=== PATIENT | male | born 1975 | race Asian ===

== ENCOUNTER 2019-11-06 12:52 | Inpatient (IN) | payer OTHER ==
[~2019-11-06] VITALS: Ht 172.7 cm; Wt 68.0 kg
[~2019-11-06 12:52] MED LIST: AMLODIPINE BES1 CAP PO; AMLODIPINE BESY10 M2 PO; BENADRYL ALLERG25 M1 PO; CARBAMAZEPINE200 M3 PO; CLONAZEPAM1 M2 PO; HALOPERIDOL2 MG/ML PO; IRON65 MG PO; LOXAPINE10 MG PO; NATURE'S BLEND F1 MG PO; QUETIAPINE FUM400 M1 PO; TENORMIN25 MG PO; VITAMIN B122500 MC1 PO
[2019-11-06 12:55] VITALS: Ht 172.7 cm; Wt 68.0 kg
--- NOTE | 2019-11-06 12:55 | NUR ---
PT WAS BIBA FROM HOME FOR C/O WORSENING WEAKNESS AND ALOC; PER EMS PT HAS PSYCH HX, WAS ADMITTED TO PSYCH FACILITY [facility] IN [place] SINCE THEN PT HAS HAD PROGRESSIVE WEAKNESS, NOT SPEAKING, NOT EATING AND URINARY INCONTINENCE PER EMS AND PAPERWORK BY FAMILY, PT TAKES HALDOL PER EMS; PT IS AWAKE, WAS ABLE TO STATE HIS NAME AND , WHEN ASKED BY DR. MONTALVO PT NOT ANSWERING QUESTIONS, PT IS IN NO ACUTE DISTRESS, VSS
[2019-11-06 13:37] LABS: BASOPHIL % 0.3 % (0-2); PLATELET COUNT 254 x10^3mcL (130-400); RED CELL DISTRIBUTION WIDTH 13.8 % (11.5-14.5)
[2019-11-06 14:08] LABS: ALBUMIN 3.7 g/dL (3.4-5.0); ALKALINE PHOSPHATASE 62 U/L (46-116); ALT/SGPT 24 U/L (16-63); AST/SGOT 8 U/L (15-37); BILIRUBIN TOTAL 0.25 mg/dL (0.20-1.00); CALCIUM 8.9 mg/dL (8.5-10.1); CARBON DIOXIDE 23.4 mmol/L (21-32); CHLORIDE SERUM 106 mmol/L (98-107); CHOLESTEROL 198 mg/dL (<200); GFR1 16 mL/min; GLUCOSE SERUM 97 mg/dL (74-106); POTASSIUM SERUM 3.8 mmol/L (3.5-5.1); SODIUM SERUM 142 mmol/L (136-145); TOTAL PROTEIN, SERUM 7.1 g/dL (6.4-8.2)
--- NOTE | 2019-11-06 14:15 | NUR ---
PT LAYING QUIETLY, SAID HIS NAME & NODDED YES & NO TO SIMPLE QUESTIONS BUT WOULDN'T ANSWER SOME QUESTIONS VERBALLY. WHEN ASKED WHERE HE WAS REPLIED "[facility]" & WHEN ASKED THE DATE STATED "DECEMEBER." FLUID BOLUS RUNNING.
--- NOTE | 2019-11-06 14:15 | NUR ---
PT LAYING QUIETLY, SAID HIS NAME & NODDED YES & NO TO SIMPLE QUESTIONS BUT WOULDN'T ANSWER VERBALLY. WHEN ASKED WHERE HE WAS REPLIED "[facility]" & WHEN ASKED THE DATE STATED "MARCH." FIELD IV WAS RUNNING, CLAMPED OFF D/T NO FLUID ORDER.
[2019-11-06 14:21] LABS: CREATININE SERUM 4.3 mg/dL (0.7-1.3)
--- NOTE | 2019-11-06 15:15 | NUR ---
DR MONTALVO SPOKE W/ MOTHER & FATHER. PER PARENTS, PT HAS 30 YEAR HX OF BIPOLAR & SCHIZOPHRENIA & WAS WELL-CONTROLLED ON LITHIUM. 2 YEARS AGO HE WAS TAKEN OFF D/T RENAL ISSUES. PT HAS HAD RECENT ADMISSIONS @ [facility]. DESCRIBE PT BEING BEDRIDDEN X 2 WEEKS W/ DECREASED PO INTAKE & URINARY INCONTINENCE. THEY SENT HIM IN TODAY D/T WORRIES ABOUT HIS KIDNEYS.
--- NOTE | 2019-11-06 15:25 | NUR ---
PT WAS UNABLE TO VOID PER URINAL. WENT TO CATH PT. PT FOUND TO BE INCONTINENT OF URINE. LINENS CHANGED. ST CATH PT FOR 1100 PALE CLEAR URINE. CHUX & DIAPER APPLIED. PT COOPERATIVE. "PT CNA PCT" FROM AMBULANCE REMOVED FROM OUT FROM UNDER PT & PT PULLED UP IN BED.
--- NOTE | 2019-11-06 15:43 | NUR ---
MED IM PER ORDER.
--- NOTE | 2019-11-06 16:50 | NUR ---
PT LAYING COMFORTABLY IN RIGHT LATERAL POSITION. CONTINUES TO ANSWER HE IS AT "[facility]" AND IN THE MONTH OF "MARCH. PT IS AWAKE WITH EYES TRACKING APPROPRIATELY. RESP E/U.
[2019-11-06 17:39] LABS: UA SPECIFIC GRAVITY <=1.005 (1.005-1.035); microscopic required? YES; urine erythrocyte TRACE (NEGATIVE)
[2019-11-06 17:49] LABS: AMPHETAMINE QUAL UR NONE DETECTED (See below)
--- NOTE | 2019-11-06 18:48 | NUR ---
PT PULLED OUT IV TO LEFT AC. BLEEDING CONTROLLED.
--- NOTE | 2019-11-06 19:42 | NUR ---
PATIENT LYING IN BED AWAKE, NO DISTRESS NOTED AT THIS TIME. PATIENT IN VIEW OF NURSES STATION, WILL CONTINUE TO MONITOR.
--- NOTE | 2019-11-06 21:56 | NUR ---
RECEIVED REPORT FROM ERROL CARREON FROM ED. AWAITING FOR PT TO ARRIVE TO UNIT.
--- NOTE | 2019-11-06 21:56 | NUR ---
REPORT GIVEN TO CHRISTINA CARREON, EXT. [phone], ALL QUESTIONS ADDRESSED.
--- NOTE | 2019-11-06 22:15 | NUR ---
RECEIVED PT FROM ED VIA RENATA ACCOMPANIED BY RN. PT AAOX2 TO SELF AND . PT IS SLOW TO ANSWER. PT UNABLE TO ANSWER QUESTIONS FULLY; ONLY YES/NO QUESTIONS. PT IS UNABLE TO STATE WHERE HE IS OR WHAT THE DATE IS. PT ABLE TO FOLLOW SIMPLE COMMANDS. PT DENIES SAUNDERS/DIZZINESS. PT IS MED-SURG AND DENIES CP/PRESSURE. PT PULSES PALPABLE AND CAP REFILL <3 SEC. PT LUNG SOUNDS CTA ON RA WITH E/U BREATHING. PT DENIES SOB OR RESP DISTRESS. PT ABD SOFT/ROUND WITH ACTIVE BS X4. PT DENIES N/V/C/D. PT IS INCONTINENT. PT WAS SOAKED IN URINE WHEN BROUGHT UP FROM ED. PT GOWN AND LINEN CHANGED WITH HELP OF NETWORK CONTRACT MANAGER AT THIS TIME. PT HAS GENERALIZED WEAKNESS. PT SKIN INTACT. PT DENIES S/S OF PAIN OR DISCOMFORT. PT IV TO LAC PATENT AND INTACT. ALL NEEDS MET. ORIENTED PT TO ROOM AND CALL LIGHT. CALL LIGHT WITHIN REACH. BED IN LOWEST POSITION. SIDE RAILS X2 UP. WILL CONTINUE TO MONITOR.
[2019-11-06 22:34] VITALS: BP 133/86
--- NOTE | 2019-11-06 23:29 | NUR ---
PT ATTEMPTING TO REMOVE IV TO LAC. EDUCATED PT THAT HE NEEDS TO LEAVE HIS IV ALONE D/T THE IVF HE IS RECEIVING. PT NODDED THAT HE UNDERSTOOD. WILL REINFORCE THIS TEACHING. WILL CONTINUE TO MONITOR.
--- NOTE | 2019-11-07 02:51 | NUR ---
PT RESTING COMFORTABLY WITH EYES CLOSED, EASILY AROUSABLE. NO ACUTE DISTRESS NOTED. NS INFUSING WELL AT 100ML/HR. WILL CONTINUE TO MONITOR.
--- NOTE | 2019-11-07 04:41 | NUR ---
PT RESTING COMFORTABLY WITH EYES CLOSED, EASILY AROUSABLE. NO ACUTE DISTRESS NOTED. PT DENIES ANY S/S OF PAIN OR DISCOMFORT. ALL NEEDS MET. WILL CONTINUE TO MONITOR.
[2019-11-07 05:59] VITALS: BP 135/75
--- NOTE | 2019-11-07 07:26 | NUR ---
PT RESTED COMFORTABLY IN INTERVALS DURING THE NIGHT. NO ACUTE DISTRESS NOTED. PT BREATHING E/U ON RA. ALL NEEDS MET. SAFETY AND COMFORT MEASURES MAINTAINED. CALL LIGHT WITHIN REACH. BED IN LOWEST POSITION. SIDE RAILS X2 UP. ENDORSED CARE TO COSTA CARREON.
[2019-11-07 08:00] VITALS: BP 143/83
--- NOTE | 2019-11-07 08:00 | NUR ---
RECEIVED PATIENT SHOW IS JUST STARRING OFF INTO SPACE. HE HAS NOT SHOWN ANY RESPONSIVENESS TO STAFF BUT NOTED HE IS AWARE AND THEBREATHING IS UNLABORED. HE HAS NOT MOVED HIS ARMS OR LEGS BUT HAS BEEN NON VERBAL AND APPARENTLY LIKE THIS AT HOME WHIC PER THE FATHEER IS THE REASON THAT HE WAS SENT TO A PSYCH FACILITY. 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 A FLAT AFFECT NOTED AND HE HAS BEEN LETHARGIC REFUSING TO EAT OR DRINK AND NON VERBAL AND RESISTANT TO CARE.
[2019-11-07 08:48] LABS: CALCIUM 8.9 mg/dL (8.5-10.1); CREATININE SERUM 3.7 mg/dL (0.7-1.3); MAGNESIUM 2.3 mg/dL (1.8-2.4); PHOSPHOROUS 3.7 mg/dL (2.5-4.9); POTASSIUM SERUM 4.2 mmol/L (3.5-5.1)
--- NOTE | 2019-11-07 10:16 | NUR ---
PATIENT HAS NOT INDICATED HE WILL EAT WHEN OFFERED AND HAS A FLAT AFFECT AND JUST STARES THROUGH STAFF IF NOT THERE. HE HAS DIMINISHED BERATH SOUNDS AND BOWEL SOUNDS ARE HYPO ACTIVE. HIS FATHER CALLED THIS AM AND STAFF RECEIVED HIS FAX AND WILL GIVE TO THE DOCTOR WHEN HE ARRIVES FOR ROUNDS. PATIENT HAS BEEN WITH DIAPHORECTIC APPEARANCE AND IS WITH BEAD OF PERSPIRATION TO THE FOREHEAD AND NOSE. HE HAS REFUSED JEFFERY FOOD AND THE MEDICATIONS OFFERED. VITALS AT THIS TIME AT 99.2, 72, 135/75, 97% ON ROOM AIR. DERICK MONTEMAYORHS BEEN INCONTINENT AT HOME AND REMAINS INCONTINENT AT THE HOSPITAL. E REMAINS ON FLUIDS ORDERED. 100CC PER HOUR. THE PATIENT HAS BUN AT 36.0, CREATININE AT 4.3 AND THE PATIENT
[2019-11-07 11:49] LABS: BASOPHIL % 0.4 % (0-2); PLATELET COUNT 259 x10^3mcL (130-400); RED CELL DISTRIBUTION WIDTH 13.5 % (11.5-14.5)
[2019-11-07 12:00] VITALS: BP 162/85
--- NOTE | 2019-11-07 13:00 | NUR ---
REMAINS IN A CATATONIC STATE AND NO CHANGES NOTED AT THIS TIME. REFUSED FOOD BUT DID DRINK SOME PER THE TUNNEL KILN OPERATOR. WILL CONTINUE TO MONITOR.
[2019-11-07 16:00] VITALS: BP 139/84
--- NOTE | 2019-11-07 17:00 | NUR ---
PT WAS SEEN FOR DYSPHAGIA. PT HAD POCKETING FOR PUREE DIET TRIALS. PT WAS ABLE TO SAFELY SWALLOW THIN LIQUID. RECOMMENDATION LIQUIFIED DIET WITH THIN LIQUID SMALL BITES AND SIPS ONLY. 1:1 SUPERVISION
--- NOTE | 2019-11-07 18:18 | NUR ---
HAD ADVISED THE RESIDENT ABOUT THE PATIENT FAMILY REQUESTED TO SPEAK WITH THEM. THE FAMILY CALLED BACK AND A HALF AN HOUR OR MORE SPOKE IWITH THE FATHER AND THE MOTHER AND HOW THEY FEEL THE PATIEN TWIL LNEED MORE DEPOKOT AND HALDOL AND THAT THE PO IS NOT WORKING ANDHE REVERTS BACK TO A CATATONIC STATE. THE PARENTS ARE AWARE THAT THE PATIENT CAN NOT BE ON IV OR IM AT HOME AND THAT THE OPTION IS ONLY ORAL MEDICATION. THE PSYCH DR OF THE PATIENT STOPPED SOME OF THE MEDICATIONS POST HIS COMING HOME AND SINCE THEM HE HAS GETTING WORSE AND WORSE. THE PATIENT FORM GIVEN IN ER AND THEN FAXED TO THE FLOOR WAS NOTED BY THE RESIDENT AND THE PARENTS AGAIN REPEATED SEVERAL TIMES ON THE PHONE THIER CONCERNS AND WISHES. WILL ENDORSE TO THE ON COMING SHIFT EVAN DID WITH THE RESIDENT EARLIER TODAY.
--- NOTE | 2019-11-07 19:45 | NUR ---
RECEIVED PATIENT IN BED AWAKE, QUIET NOT RESPONDING TO QUESTIONS ASKED. NO SIGN OF ACUTE RESPIRATORY DISTRESS NOTED. BREATHING EASY AND NONLABOR SATTING AT 97% RA. IV TO LAC INFUSING WELL WITH NO REDNESS AND NOSWELLING NOTED TO SITE. WILL CONTINUE TO MONITOR, BED TO LOWEST POSITION. CALL LIGHT WITHIN REACH.
[2019-11-07 21:57] VITALS: BP 135/84
--- NOTE | 2019-11-08 00:05 | NUR ---
STILL AWAKE PATIENT ON CATATONIC STATE NOT RESPONDING ON QUESTIONS ASKED. NO SIGN OF RESPIRATORY DISTRESS NOTED.
--- NOTE | 2019-11-08 05:05 | NUR ---
REPOSITIONED FOR COMFORT, PATIENT STILL ON CATATONIC STATE. NO SIGN OF DISTRESS NOTED. CHECKED AT INTERVALS FOR NEEDS AND SAFETY.
[2019-11-08 05:43] VITALS: BP 144/79
--- NOTE | 2019-11-08 07:25 | NUR ---
RECEIVED PT. IN BED AWAKE AND ALERT. PT. IS NOT ENGAGING IN CONVERSATION AT THIS TIME. NO SOB, NO N/V NOTED. NO INDICATION OF PAIN NOTED. NS RUNNING AT 100 CC/HR VIA IV SITE AT L AC. BED IN LOW POS., CALL LIGHT WITHIN REACH. SIDE RAILS UP X3.
[2019-11-08 07:47] LABS: BASOPHIL % 0.4 % (0-2); PLATELET COUNT 259 x10^3mcL (130-400); RED CELL DISTRIBUTION WIDTH 14.1 % (11.5-14.5)
[2019-11-08 08:16] LABS: ALBUMIN 3.5 g/dL (3.4-5.0); BILIRUBIN TOTAL 0.29 mg/dL (0.20-1.00); CALCIUM 9.1 mg/dL (8.5-10.1); CARBON DIOXIDE 23.6 mmol/L (21-32); MAGNESIUM 2.5 mg/dL (1.8-2.4); PHOSPHOROUS 3.8 mg/dL (2.5-4.9); POTASSIUM SERUM 4.3 mmol/L (3.5-5.1)
[2019-11-08 08:27] VITALS: BP 151/74
--- NOTE | 2019-11-08 11:00 | NUR ---
TEMP.= 100.9; TYLENOL 650MG PO GIVEN. COOLING MEASURES APPLIED.
--- NOTE | 2019-11-08 12:00 | NUR ---
NOTICED PT. STARTS ENGAGING IN CONVERSATION AT THIS TIME. PT. APPEARS RESTLESS AND CONSTANTLY ATTEMPTS TO GET OUT OF BED. PT. STATED " THE POLICE IS TRYING TO KIDNAP ME AGAIN." PT. REORIENTED. WILL CONTINUE TO MONITOR.
[2019-11-08 12:50] VITALS: BP 148/80
--- NOTE | 2019-11-08 13:09 | NUR ---
DR. PEARL MADE AWARE THAT PT.'S MOTHER WOULD LIKE TO SPEAK TO THE PT.'S PHYSICIAN. DR. PEARL STATED SHE WILL GIVE A CALL TO THE PT.'S MOM LATER TODAY.
--- NOTE | 2019-11-08 16:50 | NUR ---
ATTEMPTED TO INSERT F/C X 3 DURING SHIFT. HOWEVER, PT. CONTINUED TO BE VERY AGITATED AND KEPT REFUSING F/C INSERTION. PT. BECAME VERBALLY ABUSIVE AND KEPT CURSING AT NURSING STAFF. PT. REPEATEDLY SAIF THE "F" WORD TO NURSING STAFF. DR. PEARL WAS NOTIFIED OF PT.'S CONDITION AND MADE AWARE OF PT.'S REFUSAL OF F/C INSERTION. NO FURTHER ORDER RECEIVED AT THIS TIME.
--- NOTE | 2019-11-08 17:00 | NUR ---
DR. PEARL, DR. REEDER, AND DR. DUQUE AT BEDSIDE ASSESSING THE PT. NOTICED PT. CONTINUED TO CURSE, YELL, AND SCREAM AT THE PHYSICIANS.
[2019-11-08 18:10] VITALS: BP 111/65
--- NOTE | 2019-11-08 19:00 | NUR ---
PT. APPEARS CALMER IN BED AT THIS TIME. WILL CONTINUE TO MONITOR.
--- NOTE | 2019-11-08 19:30 | NUR ---
Pt. received from day shift, currently resting sitting up in bed. Pt. noted to be agitated during day shift, calm and cooperative at this time. Pt. at this time, a/o x2 to person and time, pt. able to answer y/n questions, no acute distress noted. Pt. has no c/o pain, or chest pain, breathing e/u on RA, no sob noted. Pt. has 1:1 sitter at bedside, will cont. to monitor pt. at this time.
[2019-11-08 21:11] VITALS: BP 110/64
[2019-11-08 23:07] LABS: ALBUMIN 3.2 g/dL (3.4-5.0); BILIRUBIN TOTAL 0.2 mg/dL (0.20-1.00); CARBON DIOXIDE 22.4 mmol/L (21-32); TOTAL PROTEIN, SERUM 6.4 g/dL (6.4-8.2)
[2019-11-08 23:08] LABS: CREATININE SERUM 4.3 mg/dL (0.7-1.3)
--- NOTE | 2019-11-08 23:10 | NUR ---
md CALLED AT THIS TIME, REQUESTED FOR DOSE OF ATIVAN. PT. AT THIS TIME IS SHOUTING, ATTEMPTING TO PULL AT IV AND IV LINES, PLAYING WITH IV MACHINE. PER MD, WILL PUT IN ORDER FOR ATIVAN, WILL CONT. TO MONITOR.
--- NOTE | 2019-11-08 23:46 | NUR ---
pT. NTOED TO BE AGITATED AT THIS TIME, GAVE ATIVAN ORDERED, WILL CONT. TO MONITOR.
--- NOTE | 2019-11-09 01:56 | NUR ---
Pt. noted to be agitated throughout shift, given ativan as ordered by MD. Pt. noted to calm down and sleep since admin of medication. At this time, pt. noted to be sitting up in bed, no s/o verbal agression or combativeness. Pt. is still 1:1 at this time, otherwise, no acute changes. Will cont. to monitor pt. at this time.
--- NOTE | 2019-11-09 06:02 | NUR ---
Pt. noted to be resting throughout shift, intermittently. Pt. noted to be agitated, restless, and yelling at staff in the beginning of shift. Pt. given ativan and pt. noted to calm down. S/p ativan, pt. woek up, but reorientable and able to give directions to sleep. otherwise, pt. iv site in tact, no s/o infiltration. Pt. noted to be incontinent, will endorse to next shift RN and continue to monitor.
[2019-11-09 06:08] VITALS: BP 115/71
[2019-11-09 07:08] VITALS: BP 140/80
--- NOTE | 2019-11-09 07:18 | NUR ---
RECEIVED PT FROM DOCUMENT MANAGEMENT TECHNICIAN NURSE. PT RESTING IN BED, APPEARS LETHARGIC AT THIS TIME, RESPONDS TO VERBAL STIMULUS, RESP E/U ON RA. NO ACUTE DISTRESS NOTED. IV TO LAC W/ NO SIGNS OF INFILTRATION, IVF INFUSING WELL. BED IN LOWEST POSITION, SITTER AT BEDSIDE, CALL LIGHT WITHIN REACH. WILL CONTINUE TO MONITOR.
[2019-11-09 07:57] LABS: BASOPHIL % 0.6 % (0-2); PLATELET COUNT 210 x10^3mcL (130-400); RED CELL DISTRIBUTION WIDTH 14.3 % (11.5-14.5)
[2019-11-09 08:44] LABS: BILIRUBIN TOTAL 0.29 mg/dL (0.20-1.00); CALCIUM 8.7 mg/dL (8.5-10.1); CARBON DIOXIDE 22.5 mmol/L (21-32); CREATININE SERUM 3.9 mg/dL (0.7-1.3); MAGNESIUM 2.3 mg/dL (1.8-2.4); PHOSPHOROUS 2.7 mg/dL (2.5-4.9)
[2019-11-09 08:54] LABS: TOTAL PROTEIN, SERUM 6.1 g/dL (6.4-8.2)
[2019-11-09 11:24] VITALS: BP 126/76
--- NOTE | 2019-11-09 13:26 | NUR ---
PT IN BED SLEEPING, AROUSABLE, RESP E/U ON RA. NO ACUTE DISTRESS NOTED. BED IN LOWEST POSITION AND CALL LIGHT WITHIN REACH. SITTER AT BEDSIDE. WILL CONTINUE TO MONITOR.
[2019-11-09 14:41] LABS: CREATININE UR 24.3 mg/dL (0.95-2.49)
--- NOTE | 2019-11-09 16:25 | NUR ---
Initial Nutrition Assessment: 250A BRANDY RASMUSSEN 44M HR Nursing trigger: appears underweight/malnourished, Poor PO > 3 days Dx: FTT PMHx: Bipolar, Schizophrenia PSHx: none noted Labs: (11/08) Cl 111H, BG 111H, BUN 39H, Cr 3.9H, H/H 10.2/31L Meds: Ativan, Colace, Depakote, D5%, folic acid, Norvasc, Tenormin PRN meds: [place], Tylenol, Zofran Diet: Full liquid diet PO intake since admission: 50-100% x 3 meals with average PO intake of 83% Ht: 172.72cm/68in Wt: 68.039kg/150lbs BMI: 22.8 Bed scale: 78.1kg/172.6lbs IBW: 70kg/154lbs %IBW: 97.2% UBW: unknown Age: 44 Food Allergies: unknown Edema: none noted Last BM: 11/04 Skin: skin intact Bladimir: 19 Per H and P (11/05), The patient is a 44-year-old male with a history of schizophrenia, bipolar disorder who was brought in to the ED by family for not eating, drinking, failure to thrive and generalized weakness since July of 2019. Per EMS, the patient's family noted the patient appears to stare aimlessly, does not speak, or talk anymore. The patient is at baseline, confused but they attest that the patient appears confused than usual. Per the patient's father, since getting these medications the patient has been confused, starring aimlessly, does not respond to directions or talks, urinating on himself, motionless for a long time (1/2 hour or more), difficulty to chew and swallow food and not eating. Pt was admitted with dx: vasomotor nephropathy, h/o mental disorders: bipolar and schizophrenia RD Note (11/08) Per progress note (11/07), pt on full liquid diet until further evaluation. Per PANTOGRAPHER note (11/06), pt was seen for dysphagia. Pt had pocketing for puree diet trial, and liquid diet with thin liquid was recommended. Pt was lying in bed and sleeping during bedside visit. Pt was arousable, but pt was not responsive to RD's greeting or questions. Per RN, pt was tolerating diet, and pt did not exhibit observable GI distress. RN also mentioned that pt was not talking to him, so he did not know if pt had c/o nausea. No BM so far per RN. Pt had 83% average PO intake since admission. Diet provided approximately 1775kcal and 81g protein meeting 100% of estimated kcal and protein needs. Problem with: N/V/D/C: none per RN Problems with: Chewing: Yes per PANTOGRAPHER; Swallowing: Yes per PANTOGRAPHER Current appetite: fair Recent wt change: unknown %wt change: unknown Height: unknown Vitamin/Supplement use: Ferrous sulfate, Folic acid, vitamin B12 Special diet at home: unknown Physical activity: unknown Nutrition education given (specify specific nutrition education and handout given): not given at this time Food-drug interactions? Education given? n/a Estimated Nutritional Needs Based on current body weight (68kg) Energy: 2273-2640 kcal/day (25-30 kcal/kg for maintenance) Protein: 54-68 g/day (0.8-1 g/kg for maintenance) Fluid: 2879-6391 mL/day (1 mL/kcal) Nutrition Diagnosis: 1. Swallowing difficulty r/t pathophysiological cause a/e/b pt was pocketing food during puree diet trial and liquid diet was recommended by PANTOGRAPHER on 11/06. Intervention 1. Recommend continue full liquid diet as tolerate Monitor/Evaluate Goal: PO intake at least 75% of estimated needs Monitor: PO intake, Labs, GI function F/U in 2-3 days as high risk 11/10-
--- NOTE | 2019-11-09 16:25 | NUR ---
1. Recommend continue full liquid diet as tolerate
[2019-11-09 17:40] VITALS: BP 128/76
--- NOTE | 2019-11-09 19:25 | NUR ---
RECEIVED PT FROM DAY SHIFT NURSE. PT A/OX2 ORIENTED TO PERSON/TIME. PT CONFUSED. PT HAS BEEN NONVERBAL THROUGOUT DAY SHIFT. MED SURG. RR EVEN AND UNLABORED ON RA. NO SIGNS OF ACUTE DISTRESS NOTED. IV TO LAC INFUSING D5W AT 75ML/HR, NO SIGNS OF INFILTRATION NOTED. PT CALM AT THIS TIME. CALL LIGHT WITHIN REACH. BED IN LOWEST POSITION. WILL CONTINUE TO MONITOR.
--- NOTE | 2019-11-09 19:29 | NUR ---
ENDORSED CARE TO CHIEF BUSINESS DEVELOPMENT OFFICER RN, PT IN NO ACUTE DISTRESS AT THIS TIME. UPDATES PROVIDED, ALL QUESTIONS ANSWERED.
[2019-11-09 20:48] VITALS: BP 129/75
--- NOTE | 2019-11-10 01:20 | NUR ---
PT SLEEPING AT THIS TIME. NO SIGNS OF ACUTE DISTRESS NOTED. RR EVEN AND UNLABORED ON RA. NO C/O PAIN. PT CALM AND COOPERATIVE. CALL LIGHT WITHIN REACH. WILL CONTINUE TO MONITOR.
[2019-11-10 05:23] VITALS: BP 123/81
--- NOTE | 2019-11-10 06:33 | NUR ---
PT RESTING IN BED AT THIS TIME. PT HAS BEEN CALM AND COOPERATIVE THROUGHOUT THE NIGHT. NO SIGNS OF ACUTE DISTRESS. RR EVEN AND UNLABORED ON RA. NO C/O PAIN AT THIS TIME. IV TO LAC INFUSING AT 75ML/HR. CALL LIGHT WITHIN REACH. BED IN LOWEST POSITION. WILL CONTINUE TO MONITOR.
[2019-11-10 07:59] VITALS: BP 131/87
[2019-11-10 08:17] LABS: CALCIUM 8.9 mg/dL (8.5-10.1); CARBON DIOXIDE 23.4 mmol/L (21-32); CREATININE SERUM 3.4 mg/dL (0.7-1.3); MAGNESIUM 2.4 mg/dL (1.8-2.4); PHOSPHOROUS 3.3 mg/dL (2.5-4.9); POTASSIUM SERUM 4.2 mmol/L (3.5-5.1)
[2019-11-10 08:35] LABS: BASOPHIL % 0.5 % (0-2); PLATELET COUNT 230 x10^3mcL (130-400); RED CELL DISTRIBUTION WIDTH 13.9 % (11.5-14.5)
[2019-11-10 11:42] VITALS: BP 127/78
[2019-11-10 16:40] VITALS: BP 129/73
--- NOTE | 2019-11-10 18:53 | NUR ---
0800 Patient AOx1 to name, flat affect, able to follow commands 1800 Patient is awake and alert to name time and place, easily reorientable. ATe 100% of dinner with tray set up. Ambulated to bathroom with assistance, able to urinate in toilet. Frequent rouding and reorientation provided throughout the shift. Will endorse to night RN.
[2019-11-10 20:11] VITALS: BP 119/75
--- NOTE | 2019-11-11 03:02 | NUR ---
@ 1945 A/A/OX2.ABLE TO FOLLOW SIMPLE COMMANDS.ANSWERS QUESTION BUT UNABLE TO CARRY A CONVERSATION.DENIES ANY DISCOMFORT @ THIS TIME.TOUNGUE WITH TRUSH. IVF NS @ 125 ML/HR INFUSING WELL.
--- NOTE | 2019-11-11 03:13 | NUR ---
@ 2100 DUE MEDS ADM. & WELL TOLERATED.
--- NOTE | 2019-11-11 03:13 | NUR ---
@ 2200 INCONTINENT OF URINE.CLEAN BY ACTIVE DIRECTORY SPECIALIST & REPOSITIONED.
--- NOTE | 2019-11-11 03:14 | NUR ---
@0000 RESTING COMFORTABLY IN NO ACUTE DISTRESS.IVF INFUSING WELL.
--- NOTE | 2019-11-11 03:15 | NUR ---
@ 0200 ASLEEP IN NO ACUTE DISTRESS.IVF INFUSING WELL.CALL LIGHT WITHIN REACH.
--- NOTE | 2019-11-11 04:07 | NUR ---
@ 0400 RESTING COMFORTABLY IN NO ACUTE DISTRESS.IVF INFUSING WELL.
[2019-11-11 04:46] VITALS: BP 117/72
--- NOTE | 2019-11-11 07:13 | NUR ---
@ 0650 ENDORSED RESTING COMFORTABLY IN NO ACUTE DISTRESS.IVF INFUSING WELL. SAFETY MAINTAINED.
[2019-11-11 07:27] LABS: BASOPHIL % 0.6 % (0-2); PLATELET COUNT 244 x10^3mcL (130-400); RED CELL DISTRIBUTION WIDTH 13.9 % (11.5-14.5)
[2019-11-11 07:57] LABS: CALCIUM 9.1 mg/dL (8.5-10.1); CARBON DIOXIDE 26.5 mmol/L (21-32); CREATININE SERUM 3.4 mg/dL (0.7-1.3); MAGNESIUM 2.6 mg/dL (1.8-2.4); POTASSIUM SERUM 4.2 mmol/L (3.5-5.1)
[2019-11-11 10:05] VITALS: BP 143/93
[2019-11-11 13:25] VITALS: BP 118/83
[2019-11-11] MEDS ORDERED: DIVALPROEX SOD500 M2 PO (15:01)
[2019-11-11] MEDS ORDERED: FOL1 PO (15:03)
[2019-11-11 15:54] VITALS: BP 118/83
[2019-11-11] MEDS ORDERED: ATIVAN1 MG PO (18:42)
[2019-11-11 18:54] VITALS: BP 135/83
[2019-11-11 19:16] LABS: CALCIUM 8.9 mg/dL (8.5-10.1); CARBON DIOXIDE 28.8 mmol/L (21-32); CREATININE SERUM 3.4 mg/dL (0.7-1.3); POTASSIUM SERUM 4.6 mmol/L (3.5-5.1)
--- NOTE | 2019-11-11 19:23 | NUR ---
SPOKE WITH DR DRAKE WHO INFORMED NURSE PT NO LONGER GOING HOME. MD WILL WRITE THE ORDER NOT TO D/C PT. CARE WILL ENDORSE TO ONCOMING SHIFT RN.
--- NOTE | 2019-11-11 20:10 | NUR ---
PATIENT RESTING IN BED, A/O X3, ORIENTED TO TIME, APPEARS DROWSY WITH SLOW AND CLEAR SPEECH, C/O OF "LITTLE HEADACHE" AND REFUSED TYLENOL PRN. BREATHING E/U ON ROOM AIR, SP02 99%, DENIES SOB. ABD SOFT AND ROUND. NO EDEMA NOTED. GENERAILZED WEAKNESS NOTED, URINAL @ BEDSIDE. C/O OF 2/10 PAIN LEVEL IN LAC, LAC SITE APPEARED SWOLLEN AND FLUSHED WELL, WILL DC IV AND START NEW IV SITE, PATIENT REFUSED PAIN MED PRN. CALL LIGHT WITHIN REACH, BED IN LOWEST POSITION. WILL CONTINUE TO MONITOR.
[2019-11-11 21:55] VITALS: BP 123/76
--- NOTE | 2019-11-12 00:15 | NUR ---
IV LAC DC'ED WITH CATHETER INTACT. NEW IV START 22G @ RFA, X3 ATTEMPTS BY 2 RNS. PATIENT TOLERATED PROCEDURE WELL, DENIES PAIN. CALL LIGHT WITHIN REACH, BED IN LOWEST POSITION. WILL CONTINUE TO MONITOR.
[2019-11-12 05:59] VITALS: BP 171/90
--- NOTE | 2019-11-12 06:00 | NUR ---
PATIENT RESTING IN BED, CALM, DENIES SOB, HEADACHE, DIZZINESS AND PAIN. INCONTINENT OF URINE, CLEANSED PATIENT AND CHANGED CHUX PADS. NEW IV IN RFA INFUSING D5W @ 150 ML/HR. NO SIGNIFICANT CHANGES DURING SHIFT, ALL NEEDS MET, CALL LIGHT WITHIN REACH, SAFETY PRECAUTIONS MAINTAINED THROUGHOUT SHIFT. WILL ENDORSE CARE TO DAY NURSE.
--- NOTE | 2019-11-12 07:30 | NUR ---
RECEIVED PT IN BED ASLEEP, EASILY AROUSABLE. IN NO ACUTE RESPIRATORY DISTRESS. NO FACIAL GRIMACING OR GRUNTING, DENIES PAIN OR DISCOMFORT. IV SITE TO RFA RUNNING ON D5 AT 150CC/HR. BED IN LOWEST POSITION, CALL LIGHT WITHIN REACH. WILL CONTINUE TO MONITOR.
[2019-11-12 08:37] VITALS: BP 130/81
--- NOTE | 2019-11-12 12:35 | NUR ---
ENCOURAGE PATIENT TO AMBULATE FROM BED TO CHAIR WITH STAFF. PATIENT ABLE TO TRANSFER SELF WITH VERBAL QUES, NO SWAYING, DENIES DIZZINESS. ENCOURAGE TO FEED SELF, REQUIRES FREQUENT VERBAL QUES BUT PT FOLLOW PROMPTS.
[2019-11-12 17:36] VITALS: BP 111/67
--- NOTE | 2019-11-12 18:14 | NUR ---
LATE ENTRY: DOCUMENTATION 11/11/2019 WAS NOT SAVED AND FILED THEREFORE NURSE RECHART TODAY FOR YESTERDAY.
--- NOTE | 2019-11-12 18:15 | NUR ---
PT IN BED AWAKE, LAYING DOWN, EASILY AROUSABLE. IN NO ACUTE RESPIRATORY DISTRESS. DENIES PAIN OR DISCOMFORT AT THIS TIME. IV SITE TO RFA RUNNING ON D5 AT 150CC/HR. BED IN LOWEST POSITION, CALL LIGHT WITHIN REACH. WILL ENDORSE CARE TO INCOMING NURSE.
--- NOTE | 2019-11-12 20:05 | NUR ---
REPORT FROM DAY RN. NO S/S OF DISTRESS OR DISCOMFORT. PT RESTING WITH EYES CLOSED. BREATHING EVEN ON RA 985 SPO2. IV INTACT RUNNING D5W 150ML/HR. MED SURG PT NO WOUNDS. VOIDS FREELY IN URINAL, CALM AND COOPERATIVE WITH CARE. ACTIVE BOWEL SOUNDS, SOFT NON TENDER ABD. AXOX3. BED IN LOW POSITION, SIDE RAILS UPX2, CALL LIGHT WITHIN REACH.
[2019-11-12 20:45] VITALS: BP 105/57
--- NOTE | 2019-11-12 21:20 | NUR ---
PT IS REFUSING HEPARIN SQ.
--- NOTE | 2019-11-13 00:08 | NUR ---
PT RESTING. EYES CLOSED. NO S/S OF DISTRESS OR DISCOMFORT. FLUIDS RUNNING, NO S/S OF INFILTRATION. MED SURG PATIENT. NO C/O CP. PT USES BEDSIDE URINAL. WILL CONTINUE TO MONITOR PATIENT AND OFFER SUPPORT.
--- NOTE | 2019-11-13 05:27 | NUR ---
PT RESTING, EYES OPENED. BREATHING EVEN ON RA. 99% SPO2. AXOX2, SELF AND SITUATION. QUIET, FLAT, SLOW TO SPEAK AND ANSWER QUESTIONS. PT SOILED WITH URINE. PT WAS CLEANED AND BEDDING CHANGED. PT DENIES PAIN, DENIES CP OR PALPITATION. PT REFUSES HEPARIN VTE. OFFER FLUIDS AND NUTRITION SHAKE, PT REFUSED. PT WAS ABLE TO SIT IN A CHAIR AT BEDSIDE.FLUIDS RUNNING, IV INTACR NO S/S OF INFILTRATION. BED IN LOW POSITION, SIDE RAILS UPX2, CALL LIGHT WITHIN REACH. PT WAS ENCOURAGED TO USE THE CALL LIGHT WHEN HE NEEDS ASSISTANCE. WILL CONTINUE TO MONITOR PATIENT AND OFFER SUPPORT.
[2019-11-13 05:40] VITALS: BP 109/60
--- NOTE | 2019-11-13 07:50 | NUR ---
RECEIVED PT FROM NIGHT NURSE. PT WAKING AND C/O SHOULDER PAIN 07/04. MEDICATED WITH TYLENOL ORDERED PRN. SERVED BREAKFAST, WILL MONITOR INTAKE. IV SITE WNL AND INFUSING NORMALLY D5 150 ML/HR. LS CTA AND NO SOB OR RESP DISTRESS. PT PRESENTS WITH FLAT AFFECT AND WAXY FLEXIBILITY MOMENTARILY. GENERALLY APPEARS COMFORTABLE. SAFETY PRECAUTIONS IN PLACE. WILL CONTINUE TO MONITOR.
[2019-11-13 08:46] VITALS: BP 137/66
[2019-11-13 12:00] VITALS: BP 108/71
--- NOTE | 2019-11-13 12:59 | NUR ---
Follow-up Nutrition Assessment: Nursing trigger: appears underweight/malnourished, Poor PO > 3 days Dx: FTT PMHx: Bipolar, Schizophrenia PSHx: none noted Labs: (11/10; none new): Na 145, K 4.6, Glu 166, BUN 43, Cr 3.4, H/H 12.2/37. Meds: Colace, Depakote, D5%, Folic acid, Tenormin, Tylenol, Zofran Diet: Full liquid diet PO intake since admission: 50-100% x 3 meals with average PO intake of 83% Ht: 172.72cm/68in Wt: 68.039kg/150lbs BMI: 22.8 Bed scale: 78.1kg/172.6lbs IBW: 70kg/154lbs %IBW: 97.2% UBW: unknown Age: 44 Food Allergies: unknown Edema: none noted Last BM: 11/04 Skin: skin intact Bladimir: [address] (11/08) Per progress note (11/07), pt on full liquid diet until further evaluation. Per MACHINE STRIPPER CUTTER note (11/06), pt was seen for dysphagia. Pt had pocketing for puree diet trial, and liquid diet with thin liquid was recommended. Pt was lying in bed and sleeping during bedside visit. Pt was arousable, but pt was not responsive to RD's greeting or questions. Per RN, pt was tolerating diet, and pt did not exhibit observable GI distress. RN also mentioned that pt was not talking to him, so he did not know if pt had c/o nausea. No BM so far per RN. Pt had 83% average PO intake since admission. Diet provided approximately 1775kcal and 81g protein meeting 100% of estimated kcal and protein needs. RDN Note (11/12): Per Physician Progress Note, Pt is stable for d/c; however, Pt's parents are unsure of how to take care of him at home as they are older now. Parents are open to considering SNF. Parents will not shrimp picker patient. Pt will stay in hospital. Per nephrology, Pt with underlying CKD 4, no urgent requirement for HD at this time. Problem with: N/V/D/C: none per RN Problems with: Chewing: Yes per MACHINE STRIPPER CUTTER; Swallowing: Yes per MACHINE STRIPPER CUTTER Current appetite: fair Recent wt change: unknown %wt change: unknown Height: unknown Vitamin/Supplement use: Ferrous sulfate, Folic acid, vitamin B12 Special diet at home: unknown Physical activity: unknown Nutrition education given (specify specific nutrition education and handout given): not given at this time Food-drug interactions? Education given? n/a Estimated Nutritional Needs Based on current body weight (68kg) Energy: 9190-5746 kcal/day (25-30 kcal/kg for maintenance) Protein: 54-68 g/day (0.8-1 g/kg for maintenance) Fluid: 7709-6211 mL/day (1 mL/kcal) Nutrition Diagnosis: 1. Swallowing difficulty r/t pathophysiological cause a/e/b pt was pocketing food during puree diet trial and liquid diet was recommended by MACHINE STRIPPER CUTTER on 11/06. (Resolved) Intervention 1. Recommend continue full liquid diet as tolerated. Monitor/Evaluate Goal: PO intake at least 75% of estimated needs Monitor: PO intake, Labs, GI function F/U in 3-5 days as moderate risk 11/15-
--- NOTE | 2019-11-13 13:00 | NUR ---
Intervention 1. Recommend continue full liquid diet as tolerated.
--- NOTE | 2019-11-13 16:18 | NUR ---
FATHER OF PT CALLED IN THE AM. RETURNED HIS CALL TO GIVE UPDATE. PT HAS BEEN EATING WELL AND TOLERATING DIET. HE IS ABLE TO FOLLOW COMMANDS AND IS VERBAL IN SHORT ANSWERS. WILL CONTINUE TO MONITOR.
[2019-11-13 16:30] VITALS: BP 113/53
--- NOTE | 2019-11-13 19:36 | NUR ---
PT AMBULATED TO BATHROOM ONCE DURING SHIFT. IV SITE WNL AND INFUSING D5 150MLS/HR. FLAT AFFECT REMAINS, BUT IS ALERT AND ORIENTED. HE CAN RESPOND AND FOLLOW COMMANDS. PT APPEARS COMFORTABLE AND IS CALM. ENDORSED TO NIGHT NURSE
--- NOTE | 2019-11-13 19:50 | NUR ---
RECEIVED PT FROM AM NURSE, PT AWAKE, AA/O X 3, ABLE TO FOLLOW SIMPLE COMMANDS. DENIES HEADACHE/ DIZZINESS, PT IS MED SURG, DENIES CHEST PAIN, CHEST PRESSURE. PULSES PALPABLE/ NO EDEMA. RESPIRATIONS E/U ON ROOM AIR, NO SOB. ACTIVE BS X 4 QUADS, DENIES N/V/D. GENERALIZED WEAKNESS. IV SITE TO RFA INTACT, NO ERYTHEMA/ NO INFILTRATION. IV FLUIDS INFUSING WELL AT THIS TIME. DENIES PAIN. CALL BUTTON WITHIN REACH, WILL CONTINUE TO MONITOR.
[2019-11-13 20:41] VITALS: BP 113/71
--- NOTE | 2019-11-14 00:10 | NUR ---
PT IN BED RESING WITH EYES CLOSED, BUT EASILY AROUSABLE, ABLE TO MAKE NEEDS KNOWN. RESPIRATIONS EVEN AND UNLABORED ON ROOM AIR. IV FLUIDS INFUSING WELL TO IV SITE TO RFA, NO ERYTHEMA, NO INFILTRATION. NO S/S OF PAIN OR DISTRESS. CALL BUTTON WITHIN REACH, WILL CONTINUE TO MONITOR.
[2019-11-14 05:59] VITALS: BP 123/79
--- NOTE | 2019-11-14 06:01 | NUR ---
PT SLEPT IN INTERVALS THROUGHOUT THE NIGHT, BUT EASILY AROUSABLE. RESPIRATIONS E/U. DENIES PAIN. NO ACUTE CHANGES OVERNIGHT. ALL CONCERNS ADDRESSED, IV FLUIDS INFUSING WELL. CALL LIGHT WITHIN REACH, WILL ENDORSE CARE TO AM NURSE.
[2019-11-14 07:22] LABS: BASOPHIL % 0.4 % (0-2); PLATELET COUNT 253 x10^3mcL (130-400); RED CELL DISTRIBUTION WIDTH 13.3 % (11.5-14.5)
[2019-11-14 07:42] LABS: CALCIUM 9.2 mg/dL (8.5-10.1); CARBON DIOXIDE 24.4 mmol/L (21-32); CREATININE SERUM 3.3 mg/dL (0.7-1.3); MAGNESIUM 2.8 mg/dL (1.8-2.4); PHOSPHOROUS 4.4 mg/dL (2.5-4.9); POTASSIUM SERUM 4.1 mmol/L (3.5-5.1)
[2019-11-14 13:33] VITALS: BP 140/80
--- NOTE | 2019-11-14 14:24 | NUR ---
PT WAS SEEN FOR DYSPHAGIA. PT WAS ABLE TO SAFELY SWALLOW MS DIET WITH CHOPPED MEAT AND VEG WITH THIN LIQUID. MILD DIFFICULTY WITH MASTICATION SKILLS FOR REGULAR DIET. RECOMMENDATION MS DIET WITH CHOPPED MEAT AND VEG WITH THIN LIQUID SMALL BITES AND SIPS ONLY. SUPERVISION DURING MEAL TIME FOR SMALL BITES.
[2019-11-14 17:35] VITALS: BP 129/80
--- NOTE | 2019-11-14 18:58 | NUR ---
Pt currently in bed awake but confused. Pt condition unchanged throughout this shift. Pt incontinence but able to use urinal or rest room if assisted on time. Pt got out of bed multiple times this shift without assistance. Pt follows instructions and easily redirected. Bed larm remained in place which was very helpful. No falls or injuries this shift. Pt father called and checked during shift. Will endorse care to oncoming shift.
--- NOTE | 2019-11-14 19:30 | NUR ---
PT RECEIVED FROM AM NURSE. PT A/O X3, W/ EPISODES OF CONFUSION AND DROWSINESS, ABLE TO FOLLOW SIMPLE COMMANDS. MED-SURG, DENIES ANY CP/PRESSURE. PULSES PALPABLE, NO EDEMA PRESENT. BREATHING IS EVEN AND UNLABORED ON RA, NO RESP DISTRESS NOTED. ABD SOFT AND NONDISTENDED, DENIES N/V. VOIDS FREELY W/ URINAL AT BEDSIDE, MAY HAVE EPISODES OF URINARY INCONTINENCE. GENERALIZED WEAKNESS, FALL PRECAUTIONS IN PLACE. SKIN IS WARM AND DRY INTACT. PT DENIES HAVING ANY PAIN AT THIS TIME. NO IV ACCESS PRESENT AND PT REFUSING IV REINSERTION, WILL NOTIFY MD. NO ACUTE DISTRESS NOTED. BED IN LOWEST SETTING, SIDE RAILS UP X2, CALL LIGHT WITHIN REACH. WILL CONT TO MONITOR.
--- NOTE | 2019-11-14 21:45 | NUR ---
RECEIVED CALL FROM PT'S FATHER, UPDATES GIVEN. PT ON TELEPHONE CALL W/ FATHER AT THIS TIME.
[2019-11-14 22:17] VITALS: BP 124/77
--- NOTE | 2019-11-15 00:15 | NUR ---
PT RESTING IN BED WITH EYES CLOSED, BUT IS EASILY AROUSABLE. BREATHING IS EVEN AND UNLABORED, NO RESP DISTRESS. PT DENIES HAVING ANY PAIN AT THIS TIME. BED ALARM ON. CALL LIGHT WITHIN REACH. WILL CONT TO MONITOR.
--- NOTE | 2019-11-15 01:10 | NUR ---
PT REFUSED IV REINSERTION AND IV FLUIDS, DR YI MADE AWARE, NO NEW ORDERS RECEIVED.
--- NOTE | 2019-11-15 05:30 | NUR ---
PT SLEPT AT INTERVALS THROUGHOUT THE EVENING. BREATHING IS EVEN AND UNLABORED, NO RESP DISTRESS NOTED. PT DENIES HAVING ANY PAIN AT THIS TIME. PT HAD MULTIPLE EPISODES OF URINARY INCONTINENCE DURING SHIFT AND ATTEMPTED TO GET OUT OF BED. BED ALARM ON. PT CLEANED AND ASSISTED W/ REPOSITIONING. LINENS AND GOWNS CHANGED. NO IV ACCESS PRESENT, PT CONT TO REFUSE IV REINSERTION. NO ACUTE CHANGES ENCOUNTERED DURING SHIFT. ALL NEEDS MET AND ANTICIPATED. CALL LIGHT WITHIN REACH. WILL ENDORSE CARE TO AM NURSE.
[2019-11-15 06:36] VITALS: BP 127/84
[2019-11-15 07:50] LABS: CALCIUM 9.5 mg/dL (8.5-10.1); CARBON DIOXIDE 27.6 mmol/L (21-32); CREATININE SERUM 3.6 mg/dL (0.7-1.3); MAGNESIUM 2.9 mg/dL (1.8-2.4); PHOSPHOROUS 4.5 mg/dL (2.5-4.9); POTASSIUM SERUM 4.3 mmol/L (3.5-5.1)
[2019-11-15 07:56] LABS: BASOPHIL % 0.2 % (0-2); PLATELET COUNT 285 x10^3mcL (130-400); RED CELL DISTRIBUTION WIDTH 13.9 % (11.5-14.5)
[2019-11-15 09:20] VITALS: BP 128/56
[2019-11-15 12:59] VITALS: BP 144/85
--- NOTE | 2019-11-15 13:38 | NUR ---
PT STABLE NO COMPLAINTS. A&OX1, PARENTS ARRIVED BROGUHT PT TO LOBBY. EXPLAINED TO FATHER PATIENTS RIGHT, EDUCATED HIM ON PT NEW MEDICATION REGIMEN AND WHERE TO ORANGE PICKER PRESCRIPTIONS. TO F/U WITH PRIMARY CARE PROVIDER , PROVIDED WRITTEN MATERIAL ON PATIENTS DX OF SCHIZOPHRENIA AND ACUTE KIDNEY INJURY AND WHAT TO DO IF SYMPTOMS GET WORSE. FATHER SIGNED DISCHARGE PAPERWORK AND PATIENT RECIEVED ALL BELONGINGS HE WAS ADMITTED WITH.
== END 2019-11-15 13:38 | disposition home health service (06) | DRG 683 ==
LOC: ED 12:52 → MU 15:46
PROVIDERS: Internal Medicine; Specialist; ADMIT Family Medicine; ATTEND Family Medicine
DX: N17.0 Acute kidney failure with tubular necrosis (principal); F20.2 Catatonic schizophrenia; E87.0 Hyperosmolality and hypernatremia; F31.9 Bipolar disorder, unspecified; F29 Unspecified psychosis not due to a substance or known physiological condition; R62.7 Adult failure to thrive; R33.9 Retention of urine, unspecified; N18.4 Chronic kidney disease, stage 4 (severe); N13.9 Obstructive and reflux uropathy, unspecified; I12.9 Hypertensive chronic kidney disease with stage 1 through stage 4 chronic kidney disease, or unspecified chronic kidney disease; F41.9 Anxiety disorder, unspecified; R45.1 Restlessness and agitation; Z20.828 Contact with and (suspected) exposure to other viral communicable diseases; T50.905A Adverse effect of unspecified drugs, medicaments and biological substances, initial encounter; E86.0 Dehydration; F20.9 Schizophrenia, unspecified; Z79.899 Other long term (current) drug therapy; Z88.0 Allergy status to penicillin; Z68.22 Body mass index [BMI] 22.0-22.9, adult
CPT/HCPCS: 36600; 92526-GN; 92610-GN; 97530-GP; G0378; G0480; J1630; J1644; J2060; J7030; J7042; J7070; Q0092; U0003-CS